=== PATIENT | female | born 1940 | race Caucasian/White ===

== ENCOUNTER 2017-01-02 09:46 | Outpatient (CLI) | payer MEDICARE ==
[2017-01-02 12:14] LABS: Cardiac Risk 2.3 (Less than 4.5)
== END 2017-01-02 09:47 | disposition home or self-care (01) ==
LOC: NAVSJIPCSP 09:46
PROVIDERS: ATTEND Internal Medicine
DX: E78.5 Hyperlipidemia, unspecified (principal); Z79.899 Other long term (current) drug therapy
CPT/HCPCS: 36415; 80061